=== PATIENT | female | born 1995 | race Caucasian/White ===

== ENCOUNTER 2017-06-18 01:50 | Emergency (ER) | payer OTHER ==
[2017-06-18] MEDS ORDERED: Sodium Chloride 0.9% 10 ML Syringe FLUSH PRN (02:15)
[2017-06-18] MEDS ORDERED: Ondansetron 4 MG/2 ML SDV IVPUSH ONE (02:16)
[2017-06-18] MEDS ORDERED: Lactated Ringers 1,000 ML IV SCH ×2 (02:30→02:55)
[2017-06-18 04:12] LABS: CHLORIDE,CL 108 mmol/L (98-107); SODIUM,NA 146 mmol/L (136-145)
--- NOTE | 2017-06-18 20:07 | EDM.PDOC ---
ED HPI GENERAL MEDICAL PROBLEM - General Chief Complaint: Drug or Alcohol Abuse Stated Complaint: Intoxication, fell hitting face, nose injury Time Seen by Provider: 06/18/17 02:00 Source of Information: Reports: Patient History Limitations: Reports: No Limitations - History of Present Illness INITIAL COMMENTS - FREE TEXT/NARRATIVE: Pt. friend states that she fell against wall, stiking her face against the wall and sustaining a nosebleed. Pt. mother states that pt. had recently undergone jaw surgery. Unknown if pt. had a LOC during the event, but she did not fall to ground. Pt. consumed a large amount of alcohol over the evening, including numerous beers. She also used a "beer bong" device to consume hard alcohol as well. Onset: Today Location: Reports: Head, Face Severity: Moderate - Related Data Allergies Allergy/AdvReac Type Severity Reaction Status Date / Time No Known Drug Allergies Allergy Other Verified 06/18/17 02:35 Home Meds: Home Meds . [No Known Home Meds] 12/20/13 [History] Past Medical History - Past Health History Medical/Surgical History: Denies Medical/Surgical History - Past Surgical History HEENT Surgical History: Reports: Other (See Below) Other HEENT Surgeries/Procedures: Upper jaw surgery 05/15/17 Social & Family History - Tobacco Use Second Hand Smoke Exposure: No - Alcohol Use Days Per Week of Alcohol Use: 0 - Recreational Drug Use Recreational Drug Use: No ED ROS GENERAL - Review of Systems Review Of Systems: See Below Constitutional: Reports: No Symptoms HEENT: Reports: Nosebleed, Nose Pain Respiratory: Reports: No Symptoms Cardiovascular: Reports: No Symptoms Endocrine: Reports: No Symptoms GI/Abdominal: Reports: No Symptoms : Reports: No Symptoms Musculoskeletal: Reports: No Symptoms Skin: Reports: No Symptoms Neurological: Reports: Difficulty Walking, Gait Disturbance, Other (pt. has been drinking heavily) Psychiatric: Reports: No Symptoms Hematologic/Lymphatic: Reports: No Symptoms Immunologic: Reports: No Symptoms - Physical Exam Exam: See Below Exam Limited By: No Limitations General Appearance: Alert, WD/WN, No Apparent Distress Eye Exam: Bilateral Eye: EOMI, Normal Fundi, Normal Inspection, PERRL Ears: Normal External Exam, Normal Canal, Hearing Grossly Normal, Normal TMs Nose: Nasal Swelling, Other (dried blood from nares. No obvious crepitus. Edema noted to nose.) Throat/Mouth: Normal Inspection, Normal Lips, Normal Teeth, Normal Oropharynx, No Airway Compromise, Other (Evidence of recent surgical changes to oral mucosa of lower jaw) Head Exam: Atraumatic, Normocephalic Neck: Normal Inspection, Supple, Non-Tender, Full Range of Motion Respiratory/Chest: No Respiratory Distress, Lungs Clear, Normal Breath Sounds, No Accessory Muscle Use, Chest Non-Tender Cardiovascular: Normal Peripheral Pulses, Regular Rate, Rhythm, No Edema, No Gallop, No JVD, No Murmur, No Rub GI/Abdominal: Normal Bowel Sounds, Soft, Non-Tender, No Organomegaly, No Distention, No Mass Neuro Exam (Abbreviated): Alert, Oriented, CN II-XII Intact, Normal Cognition, Normal Gait, Normal Reflexes, No Motor/Sensory Deficits DTR: 2+: Patella (R), Patella (L) Back Exam: Normal Inspection, Full Range of Motion, NT Extremities: Normal Inspection, Normal Range of Motion, Non-Tender, No Pedal Edema, Normal Capillary Refill Psychiatric: Normal Affect, Normal Mood Skin Exam: Warm, Dry, Intact, Normal Color, No Rash Course - Vital Signs Last Recorded V/S: Last Vital Signs Temp 36.1 C 06/18/17 01:50 Pulse 92 06/18/17 04:12 Resp 16 06/18/17 04:12 BP 116/70 06/18/17 04:12 Pulse Ox 100 06/18/17 04:12 - Orders/Labs/Meds Orders: Active Orders 24 hr Category Date Time Status Head wo Cont [CT] Stat Exams 06/18/17 02:14 Taken Max Facial Sinus wo Cont [CT] Stat Exams 06/18/17 02:14 Taken Peripheral IV Insertion Adult [OM.PC] Routine Oth 06/18/17 02:16 Ordered Labs: Laboratory Tests 06/18/17 06/18/17 06/18/17 Range/Units 02:40 03:44 03:44 WBC 9.5 (4.0-10.0) x10^3/uL RBC 4.04 (4.00-5.50) x10^6/uL Hgb 12.3 (12.0-16.0) g/dL Hct 37.6 (33.0-47.0) % MCV 93.1 H (78.0-93.0) fL MCH 30.4 (26.0-32.0) pg MCHC 32.7 (32.0-36.0) g/dL RDW Coeff of Cory 12.0 (10.0-15.0) % Plt Count 210 (130-400) x10^3/uL Neut % (Auto) 72.1 (50.0-80.0) % Lymph % (Auto) 21.6 L (25.0-50.0) % Grand % (Auto) 5.6 (2.0-11.0) % Eos % (Auto) 0.4 (0.0-4.0) % Baso % (Auto) 0.3 (0.2-1.2) % Sodium 146 H (136-145) mmol/L Potassium 3.6 (3.5-5.1) mmol/L Chloride 108 H (98-107) mmol/L Carbon Dioxide 23 (21-32) mmol/L BUN 14 (7-18) mg/dL Creatinine 0.8 (0.55-1.02) mg/dL Est Cr Clr Drug Dosing 97.19 mL/min Estimated GFR (MDRD) > 60 Glucose 84 (74-106) mg/dL Calcium 8.5 (8.5-10.1) mg/dL Corrected Calcium 8.58 (8.5-10.1) mg/dL Total Bilirubin 0.3 (0.2-1.0) mg/dL AST 15 (15-37) U/L ALT 14 (14-59) U/L Alkaline Phosphatase 95 (46-116) U/L Total Protein 7.0 (6.4-8.2) g/dL Albumin 3.9 (3.4-5.0) g/dL Globulin 3.1 Albumin/Globulin Ratio 1.26 Urine Opiates Screen Negative (NEGATIVE) Ur Buprenorphine Scrn Negative (NEGATIVE) Ur Oxycodone Screen Negative (NEGATIVE) Urine Methadone Screen Negative (NEGATIVE) Ur Barbiturates Screen Negative (NEGATIVE) Ur Tricyclics Screen Negative (NEGATIVE) Ur Amphetamine Screen Negative (NEGATIVE) U Methamphetamines Scrn Negative (NEGATIVE) Urine MDMA Screen Negative (NEGATIVE) U Benzodiazepines Scrn Negative (NEGATIVE) U Cocaine Metab Screen Negative (NEGATIVE) U Marijuana (THC) Screen Negative (NEGATIVE) Ethyl Alcohol 277 H (0-3) mg/dL Meds: Medications Discontinued Medications Generic Name Dose Route Start Last Admin Trade Name Alexandre PRN Reason Stop Dose Admin Lactated Ringer's 1,000 mls @ 500 mls/hr 06/18/17 02:30 06/18/17 02:15 Ringers, Lactated IV 999 mls/hr ASDIRECTED STACY Administration Lactated Ringer's 1,000 mls @ 999 mls/hr 06/18/17 02:55 06/18/17 02:55 Ringers, Lactated IV 999 mls/hr ASDIRECTED STACY Administration Ondansetron HCl 4 mg 06/18/17 02:16 06/18/17 03:40 Zofran IVPUSH 06/18/17 02:17 4 mg ONETIME ONE Administration Sodium Chloride 10 ml 06/18/17 02:15 Saline Flush FLUSH ASDIRECTED PRN Keep Vein Open - Radiology Interpretation Free Text/Narrative:: CT brain, c-spine, and facial bones obtained with no acute pathology noted. Departure - Departure Time of Disposition: 04:15 Disposition: Home, Self-Care 01 Condition: Good Clinical Impression: Intoxication, Contusion of face, Alcohol abuse - Discharge Information Instructions: Alcohol Intoxication, [id number] Referrals: PCP,Unobtain [Primary Care Provider] - Forms: ED Department Discharge Additional Instructions: Home to rest. Drink plenty of fluids. Return to ER of call 911 if breathing trouble or unresponsiveness. - My Orders Last 24 Hours: My Active Orders 06/18/17 02:14 Head wo Cont [CT] Stat Max Facial Sinus wo Cont [CT] Stat 06/18/17 02:16 Peripheral IV Insertion Adult [OM.PC] Routine - Assessment/Plan Last 24 Hours: My Active Orders 06/18/17 02:14 Head wo Cont [CT] Stat Max Facial Sinus wo Cont [CT] Stat 06/18/17 02:16 Peripheral IV Insertion Adult [OM.PC] Routine
== END 2017-06-18 04:30 | disposition home or self-care (01) ==
LOC: VM.ED 01:50
DX: S00.83XA Contusion of other part of head, initial encounter (principal); F10.129 Alcohol abuse with intoxication, unspecified; Y90.8 Blood alcohol level of 240 mg/100 ml or more; W01.198A Fall on same level from slipping, tripping and stumbling with subsequent striking against other object, initial encounter
CPT/HCPCS: 36415; 70450; 70486; 80053; 80305; 85025; 96361; 96374; 99284; G0480; J2405; J7120

== ENCOUNTER 2017-12-19 17:14 | Emergency (ER) | payer OTHER ==
--- NOTE | 2017-12-19 18:06 | EDM.PDOC ---
ED HPI GENERAL MEDICAL PROBLEM - General Chief Complaint: Abdominal Pain Stated Complaint: abdominal pain Time Seen by Provider: 12/19/17 17:55 Source of Information: Reports: Patient History Limitations: Reports: No Limitations - History of Present Illness INITIAL COMMENTS - FREE TEXT/NARRATIVE: Patient reports having right upper quadrant pain after eating a cheeseburger today at around 2 pm. She denies pain at this time, but was told by her mom to come get looked at. She has had problems with this before starting around last March. She did have an ultrasound that did not show any significant stones in the gall bladder at that time. She denies pain, nausea, or vomiting. She also denies fever or chills. No blood in her urine or stool and is having regular voiding habits. Onset: Sudden Duration: Resolved Prior to Arrival Location: Reports: Abdomen - Related Data Allergies Allergy/AdvReac Type Severity Reaction Status Date / Time No Known Drug Allergies Allergy Other Verified 12/19/17 17:50 Home Meds: Home Meds . [No Known Home Meds] 12/20/13 [History] Past Medical History - Past Health History Medical/Surgical History: Denies Medical/Surgical History - Past Surgical History HEENT Surgical History: Reports: Other (See Below) Other HEENT Surgeries/Procedures: Upper jaw surgery 05/15/17 ED ROS GENERAL - Review of Systems Review Of Systems: See Below Constitutional: Reports: No Symptoms HEENT: Reports: No Symptoms Respiratory: Reports: No Symptoms Cardiovascular: Reports: No Symptoms Endocrine: Reports: No Symptoms GI/Abdominal: Reports: Abdominal Pain : Reports: No Symptoms Musculoskeletal: Reports: No Symptoms Skin: Reports: No Symptoms Neurological: Reports: No Symptoms Psychiatric: Reports: No Symptoms Hematologic/Lymphatic: Reports: No Symptoms Immunologic: Reports: No Symptoms ED EXAM, GI/ABD - Physical Exam Exam: See Below Exam Limited By: No Limitations General Appearance: Alert, WD/WN, No Apparent Distress Eyes: Bilateral: Normal Appearance, EOMI Ears: Normal External Exam, Normal Canal, Hearing Grossly Normal, Normal TMs Nose: Normal Inspection, Normal Mucosa, No Blood Throat/Mouth: Normal Inspection, Normal Lips, Normal Teeth, Normal Gums, Normal Oropharynx, Normal Voice, No Airway Compromise Head: Atraumatic, Normocephalic Neck: Normal Inspection, Supple, Non-Tender, Full Range of Motion Respiratory/Chest: No Respiratory Distress, Lungs Clear, Normal Breath Sounds, No Accessory Muscle Use, Chest Non-Tender Cardiovascular: Normal Peripheral Pulses, Regular Rate, Rhythm, No Edema, No Gallop, No JVD, No Murmur, No Rub GI/Abdominal Exam: Normal Bowel Sounds, Soft, Non-Tender, No Organomegaly, No Distention, No Abnormal Bruit, No Mass, Pelvis Stable Back Exam: Normal Inspection, Full Range of Motion, NT Extremities: Normal Inspection, Normal Range of Motion, Non-Tender, Normal Capillary Refill, No Pedal Edema Neurological: Alert, Oriented, CN II-XII Intact, Normal Cognition, Normal Gait, Normal Reflexes, No Motor/Sensory Deficits Psychiatric: Normal Affect, Normal Mood Skin Exam: Warm, Dry, Intact, Normal Color, No Rash Lymphatic: No Adenopathy Course - Vital Signs Last Recorded V/S: Last Vital Signs Temp 37.1 C 12/19/17 17:35 Pulse 94 12/19/17 17:35 Resp 16 12/19/17 17:35 BP 180/102 H 12/19/17 17:35 Pulse Ox - Orders/Labs/Meds Orders: Active Orders 24 hr Category Date Time Status AMYLASE [CHEM] Stat Lab 12/19/17 17:55 Ordered CBC WITH AUTO DIFF [HEME] Stat Lab 12/19/17 17:55 Ordered COMPREHENSIVE METABOLIC PN,CMP [CHEM] Stat Lab 12/19/17 17:55 Ordered HCG QUALITATIVE,URINE [URCHEM] Stat Lab 12/19/17 17:55 Ordered UA W/MICROSCOPIC [URIN] Stat Lab 12/19/17 17:55 Ordered Departure - Departure Time of Disposition: 19:15 Disposition: Home, Self-Care 01 Condition: Good Clinical Impression: Abdominal pain - Discharge Information Instructions: Abdominal Pain, Adult, [id number], Constipation, Adult, Easy-to -Read Additional Instructions: Your labs and xray here do not show any signs of an acute gall bladder or appendix problem. Your x-ray did show slightly above average stool. Make sure to drink plenty of water and stay well hydrated to assist with bowel movements. If you continue to have right upper quadrant abdominal pain, perhaps you would need additional testing to check for gall bladder function. If you begin to run a fever, severe abdominal pain, chills, nausea, and vomiting , be sure to return to the ED for additional testing. Please call us if you have any questions or concerns. - Problem List & Annotations (1) Abdominal pain SNOMED Code(s): 90744636 Code(s): R10.9 - UNSPECIFIED ABDOMINAL PAIN Status: Acute Priority: Low Current Visit: Yes Qualifiers: Abdominal location: right upper quadrant Qualified Code(s): R10.11 - Right upper quadrant pain - Problem List Review Problem List Initiated/Reviewed/Updated: Yes - My Orders Last 24 Hours: My Active Orders 12/19/17 17:55 AMYLASE [CHEM] Stat CBC WITH AUTO DIFF [HEME] Stat COMPREHENSIVE METABOLIC PN,CMP [CHEM] Stat HCG QUALITATIVE,URINE [URCHEM] Stat UA W/MICROSCOPIC [URIN] Stat - Assessment/Plan Last 24 Hours: My Active Orders 12/19/17 17:55 AMYLASE [CHEM] Stat CBC WITH AUTO DIFF [HEME] Stat COMPREHENSIVE METABOLIC PN,CMP [CHEM] Stat HCG QUALITATIVE,URINE [URCHEM] Stat UA W/MICROSCOPIC [URIN] Stat Assessment:: abdominal pain, RUQ Plan: Your labs and xray here do not show any signs of an acute gall bladder or appendix problem. Your x-ray did show slightly above average stool. Make sure to drink plenty of water and stay well hydrated to assist with bowel movements. If you continue to have right upper quadrant abdominal pain, perhaps you would need additional testing to check for gall bladder function. If you begin to run a fever, severe abdominal pain, chills, nausea, and vomiting , be sure to return to the ED for additional testing. Please call us if you have any questions or concerns.
[2017-12-19 18:30] LABS: CHLORIDE,CL 103 mmol/L (98-107); SODIUM,NA 139 mmol/L (136-145)
[2017-12-19 18:35] LABS: ANION GAP 12.4 mmol/L (10-20)
== END 2017-12-19 19:15 | disposition home or self-care (01) ==
LOC: VM.ED 17:14
DX: R10.11 Right upper quadrant pain (principal)
CPT/HCPCS: 36415; 74019; 80053; 81001; 81025; 82150; 85025; 99284

== ENCOUNTER 2019-08-05 19:13 | Emergency (ER) | payer MEDICAID, OTHER ==
--- NOTE | 2019-08-05 19:49 | EDM.PDOC ---
ED HPI GENERAL MEDICAL PROBLEM - General Chief Complaint: ENT Problem Stated Complaint: SOMETHING STUCK IN THROAT Time Seen by Provider: 08/05/19 19:37 Source of Information: Reports: Patient, Family History Limitations: Reports: No Limitations - History of Present Illness INITIAL COMMENTS - FREE TEXT/NARRATIVE: Patient states that last she had her adenoids removed and since then she has had intermittent feeling of something getting stuck in her throat after starting back eating solid foods 3 days ago. She states she took a stool softener and felt like it got stuck yesterday when eating nefla soup today she felt like 1 of the dumplings got stuck and then approximately 2 and half hours ago she chewed up a starburst and felt like a piece of it got stuck in her throat. She denies any pain or sore throat no fever no chills no trouble swallowing liquids or holding her spit or swallow own saliva states she feels fine overall. She has been drinking with no issues She has follow-up with ENT on 28 August Duration: Day(s): Associated Symptoms: Reports: No Other Symptoms. Denies: Chest Pain, Cough, Fever/Chills, Headaches, Loss of Appetite, Nausea/Vomiting, Shortness of Breath Throat Pain Score (Numeric/FACES): 6 - Related Data Allergies Allergy/AdvReac Type Severity Reaction Status Date / Time No Known Drug Allergies Allergy Other Verified 08/05/19 19:19 Home Meds: Home Meds . [No Known Home Meds] 12/20/13 [History] Past Medical History - Past Health History Medical/Surgical History: Denies Medical/Surgical History Gastrointestinal History: Reports: Chronic Constipation - Past Surgical History HEENT Surgical History: Reports: Adenoidectomy, Other (See Below) Other HEENT Surgeries/Procedures: Upper jaw surgery 05/15/17, dental implants in 2018 Social & Family History - Tobacco Use Smoking Status *Q: Never Smoker ED ROS ENT - Review of Systems Review Of Systems: See Below Constitutional: Reports: No Symptoms. Denies: Fever, Chills HEENT: Denies: Dental Pain, Ear Pain, Nose Pain, Rhinitis, Sinus Problem, Throat Pain, Throat Swelling, Vertigo Respiratory: Reports: No Symptoms Cardiovascular: Reports: No Symptoms Endocrine: Reports: No Symptoms GI/Abdominal: Reports: No Symptoms : Reports: No Symptoms Musculoskeletal: Reports: No Symptoms Skin: Reports: No Symptoms Neurological: Reports: No Symptoms Psychiatric: Reports: No Symptoms Hematologic/Lymphatic: Reports: No Symptoms Immunologic: Reports: No Symptoms ED EXAM, ENT - Physical Exam Exam: See Below Exam Limited By: No Limitations General Appearance: Alert, WD/WN, No Apparent Distress Eye Exam: Bilateral Eye: PERRL Ears: Normal External Exam, Normal Canal, Hearing Grossly Normal Nose: Normal Inspection, Normal Mucousa, No Blood Mouth/Throat: Normal Inspection, Normal Gums, Normal Lips, Normal Oropharynx, Normal Teeth, Other (She has a patent airway with normal speech inline uvula no edema erythema no exudate no cryptic tonsils noted she has no signs or symptoms any secondary infection) Head: Atraumatic, Normocephalic Neck: Normal Inspection, Supple, Non-Tender, Full Range of Motion Respiratory/Chest: No Respiratory Distress, Lungs Clear, Normal Breath Sounds, No Accessory Muscle Use, Chest Non-Tender Cardiovascular: Normal Peripheral Pulses, Regular Rate, Rhythm GI/Abdominal: Normal Bowel Sounds, Soft, Non-Tender, No Organomegaly, No Distention Back: Normal Inspection, Full Range of Motion Extremities: Normal Inspection, Normal Range of Motion, Non-Tender Neurological: Alert, Oriented, CN II-XII Intact, Normal Cognition, Normal Gait Psychiatric: Normal Affect, Normal Mood Skin: Warm, Dry, Intact, Normal Color, No Rash Lymphatic: No Adenopathy Course - Vital Signs Text/Narrative:: Patient was instructed to chew food thoroughly to the consistency of baby food drink plenty of fluids follow-up with the ear nose throat doctor in the next 24 to 48 hours return to the emergency room if anything changes or gets worse patient mother gave verbal understanding Last Recorded V/S: Last Vital Signs Temp 35.9 C L 08/05/19 19:20 Pulse 76 08/05/19 19:20 Resp 14 08/05/19 19:20 BP 140/80 08/05/19 19:20 Pulse Ox 99 08/05/19 19:20 Departure - Departure Time of Disposition: 19:45 Disposition: Home, Self-Care 01 Condition: Good Clinical Impression: Globus sensation - Discharge Information Referrals: Khushbu Strong FEED MANAGER [Primary Care Provider] - Forms: ED Department Discharge Additional Instructions: Follow-up with the ear nose throat doctor in the next 24 to 48 hours Make sure you drink plenty of fluids make sure you chew all of your food to the consistency of baby food over the next week and I will follow each bite by a drink of water You may take [id number] Tylenol Motrin as directed on the box you may use liquid seeing how you cannot swallow the pill Return to the emergency room if anything changes or gets worse Sepsis Event Note - Evaluation Sepsis Screening Result: No Definite Risk - Focused Exam Vital Signs: Vital Signs Temp Pulse Resp BP Pulse Ox 08/05/19 19:20 35.9 C L 76 14 140/80 99 Date Exam was Performed: 08/05/19 Time Exam was Performed: 19:44 - Problem List & Annotations (1) Globus sensation SNOMED Code(s): 026520373 Code(s): R09.89 - OTH SYMPTOMS AND SIGNS INVOLVING THE CIRC AND RESP SYSTEMS Status: Acute Current Visit: Yes
== END 2019-08-05 19:56 | disposition home or self-care (01) ==
LOC: VM.ED 19:13
DX: F45.8 Other somatoform disorders (principal)
CPT/HCPCS: 99283

== ENCOUNTER 2019-08-20 06:23 | Day surgery (SDC) | payer OTHER, BC ==
[2019-08-20] MEDS ORDERED: Sodium Chloride 0.9% 10 ML Syringe FLUSH PRN (07:00)
[2019-08-20] MEDS ORDERED: Lactated Ringers 1,000 ML IV SCH (07:00)
[2019-08-20] MEDS ORDERED: Propofol 200 MG/20 ML SDV ONE (07:19)
[2019-08-20] MEDS ORDERED: fentaNYL 100 MCG/2 ML SDV ONE (07:19)
[2019-08-20] MEDS ORDERED: Promethazine Topical Gel 0.5 ML Syringe TOP PRN (08:26)
[2019-08-20] MEDS ORDERED: Ondansetron 4 MG/2 ML SDV IV PRN (08:26)
--- NOTE | 2019-08-20 13:52 | OR ---
BRIEF HISTORY OF PRESENT ILLNESS: Hussein is a 24-year-old female who reports some dysphagia for a little over a year. About 1 year ago, she had her adenoids removed. It was felt at that time that may help her symptoms, but she did not have much improvement. She at some point did have a bit of trouble with a little bit of dysphagia with food. However, she tells me that is resolved. She only has trouble swallowing pills now. She has no issues with food or liquids, whatsoever. She says that in the past she has had some reflux symptoms but none currently. Her primary description is a sensation that pills get stuck in her throat. She denies a history of prior endoscopy, peptic ulcer disease, and has no bloody or dark black stools. PROCEDURE PERFORMED: EGD with biopsies. FINDINGS: 1. Normal-appearing duodenum and stomach. 2. No evidence of hiatal hernia. 3. Z-line was at 38 cm. 4. Specifically, no stenosis of the esophagus or esophagitis. ANESTHESIA: MAC anesthesia. COMPLICATIONS: None. BLOOD LOSS: Minimal. SPECIMEN: Antral biopsy sent for H. pylori. DETAIL OF PROCEDURE: After informed consent obtained, the patient was brought to the procedure room, placed in left lateral decubitus position. MAC anesthesia was induced by Anesthesia colleagues. A bite block was placed. The endoscope was introduced in her oropharynx and through her upper esophageal sphincter down her esophagus into her stomach. The pylorus was intubated and the duodenum was examined up to the third portion. The endoscope was withdrawn. Antral biopsies were taken. Retroflexed view was then performed and showed no evidence of hiatal hernia. The stomach was desufflated and the endoscope was withdrawn slowly through the esophagus. No esophagitis or stenosis was observed. It was essentially normal esophageal exam. She tolerated the procedure well, was awoken from MAC anesthesia by Anesthesia colleagues without incident. PATHOLOGY: RKM: 08/20/2019 07:44:04 MODL: 08/20/2019 12:02:35 /[id number]
== END 2019-08-20 10:45 | disposition home or self-care (01) ==
LOC: VM.SDS 06:23
PROVIDERS: ATTEND Student in an Organized Health Care Education/Training Program
DX: R13.10 Dysphagia, unspecified (principal); R09.89 Other specified symptoms and signs involving the circulatory and respiratory systems; Z90.89 Acquired absence of other organs
CPT/HCPCS: 43239; 81025; A9270-GY; J2405; J2704; J3010; J7120